=== PATIENT | female | born 1975 | race Caucasian/White ===

== ENCOUNTER 2024-07-15 11:05 | Day surgery (SDC) | payer BC ==
[2024-07-07 14:53] VITALS: BMI 32.3
[2024-07-15 12:41] VITALS: TEMP 97.1
[2024-07-15 13:22] VITALS: RESP 18
[2024-07-15 13:26] VITALS: BP 118/64; PULSE 86
== END 2024-07-15 13:26 | disposition home or self-care (01) ==
LOC: FASU-ENDO 11:05
PROVIDERS: ATTEND Internal Medicine Gastroenterology
PROC: 0DJD8ZZ Inspection of Lower Intestinal Tract, Via Natural or Artificial Opening Endoscopic (ICD-10-PCS; principal; 2024-07-15 12:15)
DX: Z12.11 Encounter for screening for malignant neoplasm of colon (principal); K64.1 Second degree hemorrhoids
CPT/HCPCS: 81025; 82962